=== PATIENT | female | born 1945 | race Caucasian/White ===

== ENCOUNTER 2021-02-18 09:59 | Outpatient (CLI) | payer MEDICARE | END 2021-02-18 10:00 | disposition home or self-care (01) | LOC: NM 09:59 | PROVIDERS: ATTEND Urology | DX: N13.30 Unspecified hydronephrosis (principal); N28.9 Disorder of kidney and ureter, unspecified | CPT/HCPCS: 78708; A4641; A9562 ==

== ENCOUNTER 2021-04-15 10:29 | Outpatient (CLI) | payer MEDICARE ==
[~2021-04-15 10:29] MED LIST: Furosemide 40 MG/4 ML VIAL ONE
== END 2021-04-15 10:30 | disposition home or self-care (01) ==
LOC: NM 10:29
PROVIDERS: ATTEND Urology
DX: N13.30 Unspecified hydronephrosis (principal); R33.9 Retention of urine, unspecified; N28.9 Disorder of kidney and ureter, unspecified; R94.4 Abnormal results of kidney function studies
CPT/HCPCS: 78708; A4641; A9562; J1940